=== PATIENT | male | born 1950 | race Caucasian/White ===

== ENCOUNTER 2021-05-16 14:30 | Outpatient (CLI) | payer MEDICARE, BC | END 2021-05-16 14:31 | disposition home or self-care (01) | LOC: CSHULT 14:30 | PROVIDERS: ATTEND Internal Medicine | DX: R01.1 Cardiac murmur, unspecified (principal); R09.89 Other specified symptoms and signs involving the circulatory and respiratory systems; I35.1 Nonrheumatic aortic (valve) insufficiency; I51.7 Cardiomegaly; I65.29 Occlusion and stenosis of unspecified carotid artery | CPT/HCPCS: 93306; 93880 ==

== ENCOUNTER 2023-12-14 12:17 | Inpatient (IN) | payer MEDICARE, BC ==
[2023-12-14 12:58] VITALS: BMI 30.2
[2023-12-14 15:20] LABS: #Basophils 0.04 10x3/uL (0.0-0.2); #Eosinphils 0.05 10x3/uL (0.0-0.5); #Monocytes 0.86 10x3/uL (0.0-1.1); #Neutrophils 7.35 10x3/uL (1.5-8.4); %Basophils 0.4 % (0.0-2.0); %Eosinophils 0.5 % (0.0-6.0); %Monocytes 7.8 % (0.0-10.0); %Neutrophils 66.8 % (40.0-75.0); Hematocrit 37.8 % (38.8-50.0); Hemoglobin 12.6 g/dL (13.5-17.5); Mean Corpuscular HGB CONC 33.3 g/dL (32.0-36.0); Platelet Count 267 10x3/uL (150-450); RBC Distribution Width 15.9 % (11.5-14.5)
[2023-12-14 15:34] LABS: ALT (SGPT) 30 U/L (8-55); AST (SGOT) 28 U/L (5-34); Albumin 2.7 g/dL (3.4-4.8); Alkaline Phosphatase 65 U/L (40-110); Anion Gap 12 mmol/L (10-20); BUN (Urea Nitrogen) 12 mg/dL (8.4-25.7); Bilirubin, Total 0.5 mg/dL (0.2-1.2); Calc. Creatinine Clearance 106 mL/min (70-130); Calcium 8.8 mg/dL (7.8-10.44); Carbon Dioxide 25 mmol/L (23-31); Chloride 101 mmol/L (98-107); Estimated GFR 93; Globulin 3.6 g/dL (2.4-3.5); Glucose 97 mg/dL (83-110); Potassium 4.1 mmol/L (3.5-5.1); Protein, Total 6.3 g/dL (5.8-8.1); Sodium 134 mmol/L (136-145)
[2023-12-14] MEDS: VANCOMYCIN 2 GRAM/400 ML BAG 2 GM in Premix 1 BAG IVPB SCH (15:49)
[2023-12-14] MEDS: Acetaminophen 325 MG TAB PO PRN (20:40)
[2023-12-14] MEDS: Famotidine 20 MG TAB PO SCH (20:41)
[2023-12-14] MEDS: VANCOMYCIN 1.25 GM/250 ML BAG 1.25 GM in Premix 1 BAG IVPB SCH (23:18)
[2023-12-15 03:13] LABS: Vancomycin, Random 33.1 ug/mL (See Comment)
[2023-12-15] MEDS ORDERED: VANCOMYCIN 1.25 GM/250 ML BAG 1.25 GM in Premix 1 BAG IVPB SCH (04:00)
[2023-12-15] MEDS: Amlodipine 5 MG TAB PO SCH (09:20)
[2023-12-15 10:26] VITALS: BMI 30.2
[2023-12-15] MEDS ORDERED: PROPOFOL 40 ML ONE (12:04)
[2023-12-15] MEDS ORDERED: Lidocaine 1% PF 5 ML VIAL ONE (12:05)
[2023-12-15] MEDS: Vancomycin 1 GM in Sodium Chloride 0.9% 250 ML 250 ML IVPB SCH (13:40)
[2023-12-15] MEDS: Enoxaparin 40 MG (0.4 mL) SYRINGE SC SCH (14:06)
[2023-12-16] MEDS ORDERED: cefTRIAXone Sodium 2,000 MG in Syringe 0 ML IVPB SCH (09:15)
[2023-12-16] MEDS: cefTRIAXone\\ROCEPHIN 2 GM in Sodium Chloride 0.9% 100 ML IVPB SCH (12:36)
[2023-12-17 05:58] LABS: Vancomycin, Random 4.6 ug/mL (See Comment)
[2023-12-17 12:34] VITALS: BP 152/67; TEMP 98.9
[2023-12-17] MEDS ORDERED: Rosuvastatin 20 MG TAB PO SCH (21:00)
== END 2023-12-17 16:00 | disposition home or self-care (01) | DRG 290 ==
LOC: CSHTELE 12:17
PROVIDERS: ADMIT Internal Medicine; ATTEND Family Medicine
PROC: 02HV33Z Insertion of Infusion Device into Superior Vena Cava, Percutaneous Approach (ICD-10-PCS; principal; 2023-12-14)
PROC: B5181ZA Fluoroscopy of Superior Vena Cava using Low Osmolar Contrast, Guidance (ICD-10-PCS; 2023-12-14)
DX: I33.0 Acute and subacute infective endocarditis (principal); I35.1 Nonrheumatic aortic (valve) insufficiency; I10 Essential (primary) hypertension; E78.5 Hyperlipidemia, unspecified; Z79.899 Other long term (current) drug therapy; Z79.82 Long term (current) use of aspirin; Z98.890 Other specified postprocedural states
CPT/HCPCS: 36415; 36569; 71046; 76937; 77001; 80053; 80202; 82565; 84520; 85025; 87040; 93005; 93010; 93312; C1751; J0696; J2704; J3370; J3490; J7050

== ENCOUNTER 2025-06-02 01:27 | Emergency (ER) | payer MEDICARE, BC ==
[2025-06-02 02:04] LABS: #Basophils 0.05 10x3/uL (0.0-0.2); #Eosinophils 0.04 10x3/uL (0.0-0.5); #Monocytes 0.66 10x3/uL (0.0-1.1); #Neutrophils 11.14 10x3/uL (1.5-8.4); %Basophils 0.4 % (0.0-2.0); %Eosinophils 0.3 % (0.0-6.0); %Lymphocytes 15.2 % (18.0-47.0); %Monocytes 4.7 % (0.0-10.0); %Neutrophils 78.6 % (40.0-75.0); Hematocrit 43.0 % (38.8-50.0); Hemoglobin 13.9 g/dL (13.5-17.5); Mean Corpuscular Hemoglobin 27.1 pg (27.0-33.0); Mean Corpuscular Volume 83.8 fL (81.2-95.1); Platelet Count 195 10x3/uL (150-450); Red Blood Cell (RBC) Count 5.13 10x6/uL (4.32-5.72); White Blood Cell (WBC) Count 14.15 10x3/uL (3.5-10.5)
[2025-06-02 02:15] LABS: INR-International Normal Ratio 1.0; Prothrombin Time 11.0 sec (9.5-12.1)
[2025-06-02 02:19] LABS: ALT (SGPT) 41 U/L (Less than 45); AST (SGOT) 65 U/L (11-34); Albumin 3.7 g/dL (3.1-4.5); Alkaline Phosphatase 70 U/L (40-110); Anion Gap 12 mmol/L (10-20); BUN (Urea Nitrogen) 14 mg/dL (8.4-25.7); Bilirubin, Total 0.3 mg/dL (0.3-1.2); CK (CPK) 1484 U/L (30-200); Calc. Creatinine Clearance 0 mL/min (70-130); Calcium 8.5 mg/dL (7.8-10.44); Carbon Dioxide 19 mmol/L (23-31); Chloride 103 mmol/L (98-107); Globulin 2.9 g/dL (2.4-3.5); Glucose 150 mg/dL (83-110); Potassium 4.9 mmol/L (3.5-5.1); Sodium 129 mmol/L (136-145)
[2025-06-02 02:20] LABS: Acetaminophen Less than 10 mcg/mL (Less than 10); Lipase 56 U/L (8-78); Salicylate Less than 8.0 mg/dL (Less than 8.0)
[2025-06-02 02:24] LABS: Troponin I Less than 0.010 ng/mL (< 0.028)
[2025-06-02 04:47] LABS: Glucose, Urine (Dipstick) Normal (Negative); Leukocyte Negative (Negative); Protein, Urine (Dipstick) 30 mg/dl (Neg-Trace); Specific Gravity, Urine 1.015 (1.005-1.030)
[2025-06-02 04:48] LABS: Bacteria/HPF None Seen HPF (None Seen); CAUTI Indications for Culture Spinal Cord Injury; RBC/HPF 0-3 HPF (0-3); WBC/HPF None Seen HPF (0-3)
[2025-06-02 04:49] LABS: Other Microscopic Description Less than 2 mL rec'd
[2025-06-02 04:50] LABS: Urine Culture Reflex No No
[2025-06-02 04:55] LABS: Cocaine Metabolite Screen Negative (Negative); THC/Cannabinoid Screen Negative (Negative); Tricyclic Screen Negative (Negative)
[2025-06-02] MEDS ORDERED: NOREPINEPHRINE 8 MG/250 ML-D5W 250 ML ONE (06:43)
[2025-06-02] MEDS ORDERED: Dexamethasone 10 MG/ML VIAL ONE (08:01)
[2025-06-02] MEDS ORDERED: Iopamidol 370 76% 100 ML VIAL ONE (11:34)
== END 2025-06-02 10:13 ==
LOC: CSHERS 01:27
DX: S14.105A Unspecified injury at C5 level of cervical spinal cord, initial encounter (principal); S14.106A Unspecified injury at C6 level of cervical spinal cord, initial encounter; S12.401A Unspecified nondisplaced fracture of fifth cervical vertebra, initial encounter for closed fracture; M48.02 Spinal stenosis, cervical region; I10 Essential (primary) hypertension; E78.5 Hyperlipidemia, unspecified; Z95.2 Presence of prosthetic heart valve; W19.XXXA Unspecified fall, initial encounter; Y92.009 Unspecified place in unspecified non-institutional (private) residence as the place of occurrence of the external cause
CPT/HCPCS: 51702; 70450; 70551; 71260; 72125; 72141; 72146; 72148; 74177; 80053; 80306; 80307; 81001; 82550; 83605; 83690; 83880; 84484; 85025; 85610; 87428; 93005; 96374; 96375; 99285; J1100